=== PATIENT | male | born 1985 | race African-American/Black ===

== ENCOUNTER 2018-03-02 00:40 | Emergency (ER) | payer OTHER ==
[~2018-03-02] VITALS: Ht 188 cm; Wt 114.9 kg
[2018-03-02] MEDS ORDERED: REGLAN10 MG PO (02:36)
[2018-03-02] MEDS ORDERED: IMITREX25 MG PO (02:36)
[2018-03-02 02:54] VITALS: BP 141/88
== END 2018-03-02 03:08 | disposition home or self-care (01) ==
LOC: EME 00:40
DX: G43.909 Migraine, unspecified, not intractable, without status migrainosus (principal); I10 Essential (primary) hypertension; F32.9 Major depressive disorder, single episode, unspecified; Z87.891 Personal history of nicotine dependence
CPT/HCPCS: 99281; 99284; J2765; J3030